=== PATIENT | male | born 1960 | race Caucasian/White ===

== ENCOUNTER 2017-02-20 18:43 | Inpatient (IN) | payer OTHER ==
[~2017-02-20] VITALS: Ht 177.8 cm; Wt 94.7 kg
[~2017-02-20 18:43] MED LIST: CLC100 PO; FLM4 PO; NPR375 PO; TYL325X PO
--- NOTE | 2017-02-20 20:39 | DIAGNOSTIC IMAGING REPORT ---
CHEST ONE VIEW PORTABLE CLINICAL HISTORY: Chest pain. COMPARISON STUDY: Chest radiograph August 18, 2014. FINDINGS: Lung volumes are normal. No pneumothorax or pleural effusion is noted. Minimal left basilar opacity is suggestive of atelectasis. There is no consolidation to suggest pneumonia and there is no evidence of pulmonary edema. Cardiomediastinal silhouette is unremarkable. IMPRESSION: No acute cardiopulmonary findings. Electronically signed by: Nazario Sterling M.D. 02/20/2017 8:38 PM Dictated Date/Time: 02/20/2017 8:37 PM
[2017-02-20 20:42] LABS: BASO ABS # 0.08 K/uL (0-0.2); COMPLETE YES; EOS % 4.8 %; HEMATOCRIT 41.1 % (42-52); IG% 0.5 %; LYMPH % 31.4 %; LYMPH ABS # 2.49 K/uL (1.2-3.4); MEAN CELL VOLUME 91.7 fL (80-100); MEAN CORPUSCULAR HEMOGLOBIN 31.3 pg (25-34); MEAN CORPUSCULAR HGB CONC 34.1 g/dl (32-36); MEAN PLATELET VOLUME 9.7 fL (7.4-10.4); MONO % 6.9 %; NEUT % 55.4 %; PLATELET COUNT 208 K/uL (130-400); RED BLOOD COUNT 4.48 M/uL (4.7-6.1); WHITE BLOOD COUNT 7.93 K/uL (4.8-10.8)
--- NOTE | 2017-02-20 20:42 | DIAGNOSTIC IMAGING REPORT ---
R FOOT MIN 3 VIEWS ROUTINE CLINICAL HISTORY: RIGHT DORSAL FOOT PAIN, TRAUMA LAST MONTH. COMPARISON: None FINDINGS: Tarsometatarsal joints are intact. No acute fracture is identified. 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 There is subtle cortical irregularity of the lateral aspect of the right fifth metatarsal head. Mild posterior and plantar calcaneal spurring is noted. IMPRESSION: 1. No acute fracture or dislocation of the right foot. 2. Mild cortical irregularity of the lateral aspect of the right fifth metatarsal head. This finding is age indeterminate although probably chronic. This could be correlated with tenderness at this site. Electronically signed by: Nazario Sterling M.D. 02/20/2017 8:41 PM Dictated Date/Time: 02/20/2017 8:38 PM
--- NOTE | 2017-02-20 20:54 | DIAGNOSTIC IMAGING REPORT ---
RIGHT LOWER EXTREMITY VENOUS DOPPLER CLINICAL HISTORY: RIGHT LEG SWELLING, CALF PAIN, CHEST PAIN COMPARISON STUDY: No previous studies for comparison. TECHNIQUE: Sonography of the deep venous system of the right lower extremity was performed. Compression and augmentation were evaluated. FINDINGS: The common femoral, superficial femoral and popliteal veins were compressible. Augmentation was normal. Flow was shown within the deep calf vessels. IMPRESSION: No evidence of deep venous thrombus within the right lower extremity. Electronically signed by: Nazario Sterling M.D. 02/20/2017 8:53 PM Dictated Date/Time: 02/20/2017 8:53 PM
[2017-02-20 21:21] LABS: ALKALINE PHOSPHATASE 93 U/L (45-117); ALT/SGPT 41 U/L (12-78); AST/SGOT 31 U/L (15-37); BLOOD UREA NITROGEN 23 mg/dl (7-18); BUN/CREATININE RATIO 23.8 (10-20); CALCIUM 8.7 mg/dl (8.5-10.1); CARBON DIOXIDE 23 mmol/L (21-32); CHLORIDE 108 mmol/L (98-107); CKMB/CK RATIO 1.4 (0-3.0); CREATININE 0.98 mg/dl (0.60-1.40); GLUCOSE 80 mg/dl (70-99); POTASSIUM 4.4 mmol/L (3.5-5.1); SODIUM 139 mmol/L (136-145)
[2017-02-20] MEDS ORDERED: OPTIRAY 320 IV PRN (21:45)
[2017-02-20] MEDS ORDERED: OMEP40CA41 PO (22:12)
[2017-02-20] MEDS ORDERED: IBUP-1050 PO (22:12)
[2017-02-20] MEDS ORDERED: DOCU100C31 PO (22:12)
--- NOTE | 2017-02-20 22:16 | DIAGNOSTIC IMAGING REPORT ---
CT ANGIOGRAPHY OF THE CHEST, PULMONARY EMBOLUS PROTOCOL CLINICAL HISTORY: Left-sided chest pain, shortness of breath and right leg swelling. COMPARISON STUDY: Chest radiograph August 18, 2014 and February 20, [address] July 16, 2015. TECHNIQUE: Following IV administration of 94 mL of Optiray-320, helical axial images of the chest were obtained utilizing the pulmonary embolus protocol. Maximal intensity projections and sagittal and coronal reformats were viewed on an independent 3D workstation. IV contrast was administered without complication. A dose lowering technique was utilized adhering to the principles of ALARA. CT DOSE: 503.57 mGy.cm FINDINGS: No pulmonary emboli are identified. The size of the heart is normal. There is no pericardial effusion. There is moderate coronary artery calcification. A moderate sized hiatal hernia is noted. No enlarged thoracic lymph nodes are present. Central airways are patent. A few calcified thoracic lymph nodes are noted as well as calcified granulomas within the lesion. Linear and groundglass opacities within the lower lobe suggest atelectasis. There is no consolidation to suggest pneumonia. No pneumothorax or pleural effusion is present. There are several old left-sided rib fractures. IMPRESSION: 1. No pulmonary emboli identified. 2. No acute intrathoracic findings. 3. Moderate coronary artery calcification. 4. Moderate sized hiatal hernia. Electronically signed by: Nazario Sterling M.D. 02/20/2017 10:15 PM Dictated Date/Time: 02/20/2017 10:08 PM
[2017-02-20] MEDS ORDERED: ASPIRIN 81 MG CHEW PO STA (22:34)
--- NOTE | 2017-02-20 23:08 | EMERGENCY ROOM VISIT NOTE ---
History Report prepared by Christopher: Melissa Zelaya Under the Supervision of: Dr. Emiliano Sosa M.D. First contact with patient: 20:03 Chief Complaint: CHEST PAIN Stated Complaint: CHEST PAIN,FOOT PAIN Nursing Triage Summary: pt reports cp on L side of chest X 1 month intermittently denies radiation denies NV History of Present Illness The patient is a 56 year old male who presents to the Emergency Room with complaints of intermittent chest pain for 6 weeks. The patient states that they are mainly on the left side. He states that when the episodes come every 2-3 days and will last 20-30 minutes. The patient states that the episodes sometimes go away with acid reflux pills or a glass of milk, but recently that hasn't been cutting it. He states that the pain is a burning sensation that comes on when he is exerting himself. The patient reports that he walked to the mailbox with his dog today and it started. He states that he went to [facility] who sent him here to be worked over 2 hours ago. He reports that when these episodes come on he becomes nauseous. He notes a family history of heart disease, but denies any cardiac history himself. The patient also notes that he is a smoker. The patient complains of right foot pain, right calf pain, and his leg sometimes feeling numb. He states that he hit his foot on a dresser two days ago. He reports that his foot and leg swelled and since then has had the intermittent numbness. Pt denies LOC, headache, fevers, chills, diaphoresis, visual changes, neck pain , tearing pain radiating to the back, personal history or family history of aneurysm or pulmonary embolism, uncontrolled hypertension, breathing difficulties, coagulation abnormalities, prolonged travel, recent surgery or immobilization, vomiting, abdominal pain, melena, hematochezia, urinary symptoms , weakness, lymphadenopathy, rash, or other complaints. Source of History: patient Onset: 6 weeks Position: chest (left) Quality: burning Timing: intermittent Modifying Factors (Worsening): exertion Associated Symptoms: + nausea, + numbness Note: The patient complains of foot pain, right calf pain, and leg swelling. Review of Systems See HPI for pertinent positives and negatives. A total of ten systems were reviewed and were otherwise negative. Past Medical & Surgical Medical Problems: (1) Back problem (2) Bronchitis (3) COPD (chronic obstructive pulmonary disease) (4) Prostatic hypertrophy Family History Cancer FH: ND (myocardial infarction) Heart disease Social History Smoking Status: Current Every Day Smoker Marital Status: Housing Status: lives alone Occupation Status: disabled Current/Historical Medications Scheduled Docusate Sodium (Docusate Sodium), 100 MG PO BID Omeprazole (Prilosec), 40 MG PO DAILY Scheduled PRN Ibuprofen (Advil), 400-600 MG PO Q6H PRN for Pain Allergies Coded Allergies: No Known Allergies (Unverified , 12/26/13) Physical Exam Vital Signs Date Time Temp Pulse Resp B/P (MAP) Pulse Ox O2 Delivery O2 Flow Rate FiO2 02/20/17 22:30 36.5 60 20 154/91 97 Room Air 02/20/17 21:38 65 02/20/17 21:31 75 20 131/91 97 Room Air 02/20/17 20:25 70 20 189/105 95 Room Air 02/20/17 20:24 95 Room Air 02/20/17 20:24 95 Room Air 02/20/17 18:50 36.5 76 20 158/93 97 Room Air Physical Exam GENERAL: Awake, alert, well-appearing, in no distress HENT: Normocephalic, atraumatic. Oropharynx unremarkable. EYES: Normal conjunctiva. Sclera non-icteric. NECK: Supple. No nuchal rigidity. FROM. No JVD. RESPIRATORY: Clear to auscultation. CARDIAC: Regular rate, normal rhythm. Extremities warm and well perfused. Pulses equal. ABDOMEN: Soft, non-distended. No tenderness to palpation. No rebound or guarding. No masses. RECTAL: Deferred. MUSCULOSKELETAL: Chest examination reveals no tenderness. The back is symmetrical on inspection without obvious abnormality. There is no CVA tenderness to palpation. No joint edema. LOWER EXTREMITIES: Mild right dorsal foot tenderness. Mild right calf tenderness. Right calf appears slightly larger than left. 1+ edema on the right leg. No discoloration. NEURO: Normal sensorium. No sensory or motor deficits noted. SKIN: No rash or jaundice noted. Medical Decision & Procedures ER Provider Diagnostic Interpretation: Radiology results as stated below per my review and radiologist interpretation: CHEST ONE VIEW PORTABLE CLINICAL HISTORY: Chest pain. COMPARISON STUDY: Chest radiograph August 18, 2014. FINDINGS: Lung volumes are normal. No pneumothorax or pleural effusion is noted. Minimal left basilar opacity is suggestive of atelectasis. There is no consolidation to suggest pneumonia and there is no evidence of pulmonary edema. Cardiomediastinal silhouette is unremarkable. IMPRESSION: No acute cardiopulmonary findings. Electronically signed by: Nazario Sterling M.D. 02/20/2017 8:38 PM Dictated Date/Time: 02/20/2017 8:37 PM R FOOT MIN 3 VIEWS ROUTINE CLINICAL HISTORY: RIGHT DORSAL FOOT PAIN, TRAUMA LAST MONTH. COMPARISON: None FINDINGS: Tarsometatarsal joints are intact. No acute fracture is identified. 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 There is subtle cortical irregularity of the lateral aspect of the right fifth metatarsal head. Mild posterior and plantar calcaneal spurring is noted. IMPRESSION: 1. No acute fracture or dislocation of the right foot. 2. Mild cortical irregularity of the lateral aspect of the right fifth metatarsal head. This finding is age indeterminate although probably chronic. This could be correlated with tenderness at this site. Electronically signed by: Nazario Sterling M.D. 02/20/2017 8:41 PM Dictated Date/Time: 02/20/2017 8:38 PM RIGHT LOWER EXTREMITY VENOUS DOPPLER CLINICAL HISTORY: RIGHT LEG SWELLING, CALF PAIN, CHEST PAIN COMPARISON STUDY: No previous studies for comparison. TECHNIQUE: Sonography of the deep venous system of the right lower extremity was performed. Compression and augmentation were evaluated. FINDINGS: The common femoral, superficial femoral and popliteal veins were compressible. Augmentation was normal. Flow was shown within the deep calf vessels. IMPRESSION: No evidence of deep venous thrombus within the right lower extremity. Electronically signed by: Nazario Sterling M.D. 02/20/2017 8:53 PM Dictated Date/Time: 02/20/2017 8:[address] ANGIOGRAPHY OF THE CHEST, PULMONARY EMBOLUS PROTOCOL CLINICAL HISTORY: Left-sided chest pain, shortness of breath and right leg swelling. COMPARISON STUDY: Chest radiograph August 18, 2014 and February 20, [address] July 16, 2015. TECHNIQUE: Following IV administration of 94 mL of Optiray-320, helical axial images of the chest were obtained utilizing the pulmonary embolus protocol. Maximal intensity projections and sagittal and coronal reformats were viewed on an independent 3D workstation. IV contrast was administered without complication. A dose lowering technique was utilized adhering to the principles of ALARA. CT DOSE: 503.57 mGy.cm FINDINGS: No pulmonary emboli are identified. The size of the heart is normal. There is no pericardial effusion. There is moderate coronary artery calcification. A moderate sized hiatal hernia is noted. No enlarged thoracic lymph nodes are present. Central airways are patent. A few calcified thoracic lymph nodes are noted as well as calcified granulomas within the lesion. Linear and groundglass opacities within the lower lobe suggest atelectasis. There is no consolidation to suggest pneumonia. No pneumothorax or pleural effusion is present. There are several old left-sided rib fractures. IMPRESSION: 1. No pulmonary emboli identified. 2. No acute intrathoracic findings. 3. Moderate coronary artery calcification. 4. Moderate sized hiatal hernia. Electronically signed by: Nazario Sterling M.D. 02/20/2017 10:15 PM Dictated Date/Time: 02/20/2017 10:08 PM Laboratory Results 02/20/17 20:23 Red Blood Count 4.48, Mean Corpuscular Volume 91.7, Mean Corpuscular Hemoglobin 31.3, Mean Corpuscular Hemoglobin Concent 34.1, Mean Platelet Volume 9.7, Neutrophils (%) (Auto) 55.4, Lymphocytes (%) (Auto) 31.4, Monocytes (%) (Auto) 6.9, Eosinophils (%) (Auto) 4.8, Basophils (%) (Auto) 1.0, Neutrophils # (Auto) 4.39, Lymphocytes # (Auto) 2.49, Monocytes # (Auto) 0.55, Eosinophils # (Auto) 0.38, Basophils # (Auto) 0.08 02/20/17 20:23 Test 02/20/17 20:23 White Blood Count 7.93 K/uL (4.8-10.8) Red Blood Count 4.48 M/uL (4.7-6.1) Hemoglobin 14.0 g/dL (14.0-18.0) Hematocrit 41.1 % (42-52) Mean Corpuscular Volume 91.7 fL (80-100) Mean Corpuscular Hemoglobin 31.3 pg (25-34) Mean Corpuscular Hemoglobin Concent 34.1 g/dl (32-36) Platelet Count 208 K/uL (130-400) Mean Platelet Volume 9.7 fL (7.4-10.4) Neutrophils (%) (Auto) 55.4 % Lymphocytes (%) (Auto) 31.4 % Monocytes (%) (Auto) 6.9 % Eosinophils (%) (Auto) 4.8 % Basophils (%) (Auto) 1.0 % Neutrophils # (Auto) 4.39 K/uL (1.4-6.5) Lymphocytes # (Auto) 2.49 K/uL (1.2-3.4) Monocytes # (Auto) 0.55 K/uL (0.11-0.59) Eosinophils # (Auto) 0.38 K/uL (0-0.5) Basophils # (Auto) 0.08 K/uL (0-0.2) RDW Standard Deviation 48.9 fL (36.4-46.3) RDW Coefficient of Variation 14.4 % (11.5-14.5) Immature Granulocyte % (Auto) 0.5 % Immature Granulocyte # (Auto) 0.04 K/uL (0.00-0.02) Anion Gap 8.0 mmol/L (3-11) Est Creatinine Clear Calc Drug Dose 97.5 ml/min Estimated GFR () 98.1 Estimated GFR (Non- 84.6 BUN/Creatinine Ratio 23.8 (10-20) Calcium Level 8.7 mg/dl (8.5-10.1) Total Bilirubin 0.2 mg/dl (0.2-1) Direct Bilirubin < 0.1 mg/dl (0-0.2) Aspartate Amino Transf (AST/SGOT) 31 U/L (15-37) Alanine Aminotransferase (ALT/SGPT) 41 U/L (12-78) Alkaline Phosphatase 93 U/L (45-117) Total Creatine Kinase 253 U/L (39-308) Creatine Kinase MB 3.5 ng/ml (0.5-3.6) Creatine Kinase MB Ratio 1.4 (0-3.0) Troponin I < 0.015 ng/ml (0-0.045) Total Protein 7.7 gm/dl (6.4-8.2) Albumin 3.6 gm/dl (3.4-5.0) Lipase 143 U/L (73-393) Laboratory results reviewed by me Medications Administered Medications (Trade) Dose Ordered Sig/Daysi Route Start Time Stop Time Status Last Admin Dose Admin Aspirin (Aspirin Chew) 324 mg NOW STAT PO 12/26/17 22:34 02/20/17 22:35 DC 02/20/17 22:42 324 MG ECG Indication: chest pain Rate (beats per minute): 65 Rhythm: sinus rhythm Findings: PVC, no acute ischemic change ED Course 2005: The patient was evaluated in room B2. A complete history and physical exam was performed. 2145: I reevaluated the patient and updated the patient. He is going to CT. 2224: Discussed the patient's case with Dr. Garcia. The patient will be evaluated for further treatment and disposition. 2226: I reevaluated the patient and updated him on his results. He agrees to staying. Medical Decision Prior records/ancillary studies reviewed. Triage Nursing notes reviewed and agree them. The patient's history was concerning for chest pain. Differential diagnosis: Etiologies such as cardiac ischemia, aortic dissection, pulmonary embolism, pneumonia, pneumothorax, musculoskeletal, infections, pericarditis, myocarditis , esophageal rupture, gastrointestinal, as well as others were entertained. Physical examination: As above. ER treatment provided: Aspirin On reassessment the patient felt better. Diagnostic interpretation by me: The electrocardiogram was negative for pathologic change. The labs revealed an unremarkable CBC and chemistry panel. Cardiac markers negative. Imaging studies: Chest x-ray ordered x-ray, ultrasound, and CT as above The patient has multiple risk factors for coronary disease. He has pain with exertion and his primary clinic referred him to the Emergency Room. Consultation: A consultation was placed with the hospitalist. The case was discussed and diagnostics were reviewed. The patient was evaluated in the ER for further treatment. Medication Reconcilliation Current Medication List: was personally reviewed by me Blood Pressure Screening Patient's blood pressure: Elevated blood pressure Will be further monitored by the hospitalist. Consults Time Called: 2223 Consulting Physician: Dr. Garcia- Hospitalist Returned Call: 2224 Discussed the patient's case with Dr. Garcia. The patient will be evaluated for further treatment and disposition. Impression Primary Impression: Left sided chest pain Scribe Attestation The scribe's documentation has been prepared under my direction and personally reviewed by me in its entirety. I confirm that the note above accurately reflects all work, treatment, procedures, and medical decision making performed by me. Departure Information Dispostion Being Evaluated By Hospitalist Tone Jimenez M.D. (PCP) Patient Instructions [facility]
[2017-02-21] VITALS (16 sets, daily range): BP systolic 107–143; BP diastolic 60–91; PULSE 63–89; TEMP 36.4–37.1; O2SAT 93–97; Ht 177.8 cm; Wt 94.7 kg
[2017-02-21] MEDS ORDERED: ONDANSETRON INJ 2 MG/ML 2 ML VIAL IV PRN
[2017-02-21] MEDS ORDERED: POLYETHYLENE (MIRALAX) 17 GM PACK PO PRN
[2017-02-21] MEDS ORDERED: NITROGLYCERIN 0.4 MG SL PER TAB CHARGE SL PRN
[2017-02-21] MEDS ORDERED: ALUMINUM/MAGNESIUM/SIMETH (MAALOX MAX) 30 ML UDC PO PRN
[2017-02-21] MEDS ORDERED: MAGNESIUM HYDROXIDE SUSP 30 ML UDC PO PRN
[2017-02-21 00:27] LABS: URIC ACID 4.9 mg/dl (2.6-7.2)
--- NOTE | 2017-02-21 00:37 | History and Physical ---
History & Physical Date & Time of Service: Feb 21, 2017 at 00:11 Chief Complaint: Chest Pain,Foot Pain Primary Care Physician: Tone Moore M.D. History of Present Illness Source: patient This is a 56 y/o M who presents with chest pain, shortness of breath and right foot pain. He reports that the chest pain has been going on for 6 weeks intermittently. He has pain that lasts about 20 mins and comes every couple of days. He does report chest pain or a burning sensation with minimal exertion. For ex. walking the dog can bring on symptoms. He does have some nausea that accmpanies this. He has a significant family history of heart disease but no personal history. He does smoke 1 ppd. He also reports right foot pain x 3 weeks. He reports that he hit his foot on the dressor a couple of days ago. He has swelling and some numbness. He does drink alcohol twice a week. Does eat a lot of red meat. Past Medical/Surgical History Medical Problems: (1) Back problem Status: Chronic (2) Bronchitis Status: Resolved (3) COPD (chronic obstructive pulmonary disease) Status: Chronic (4) Prostatic hypertrophy Status: Chronic Family History Cancer FH: PR (myocardial infarction) Heart disease Social History Smoking Status: Current Every Day Smoker Smokeless Tobacco Use: No Alcohol Use: occasionally Drug Use: none Marital Status: Occupational Status: disabled Immunizations History of Influenza Vaccine: Unknown History of Tetanus Vaccine?: Unknown History of Pneumococcal: Unknown History of Hepatitis B Vaccine: Unknown Multi-Drug Resistant Organisms History of MDRO: No Allergies Coded Allergies: No Known Allergies (Unverified , 12/26/13) Home Medications Scheduled Docusate Sodium (Docusate Sodium), 100 MG PO BID Omeprazole (Prilosec), 40 MG PO DAILY Scheduled PRN Ibuprofen (Advil), 400-600 MG PO Q6H PRN for Pain Review of Systems Constitutional: No fever, No chills Respiratory: + shortness of breath, + dyspnea on exertion, + dyspnea at rest, No sputum, No wheezing Cardiovascular: + chest pain, + edema Abdomen: No pain, No nausea, No vomiting Musculoskeletal: No joint pain, No muscle pain Physical Exam Vital Signs Date Time Temp Pulse Resp B/P (MAP) Pulse Ox O2 Delivery O2 Flow Rate FiO2 02/20/17 23:52 69 19 148/85 97 Room Air 02/20/17 23:00 64 19 153/85 97 Room Air 02/20/17 22:30 36.5 60 20 154/91 97 Room Air 02/20/17 21:38 65 02/20/17 21:31 75 20 131/91 97 Room Air 02/20/17 20:25 70 20 189/105 95 Room Air 02/20/17 20:24 95 Room Air 02/20/17 20:24 95 Room Air 02/20/17 18:50 36.5 76 20 158/93 97 Room Air General Appearance: no apparent distress Eyes: PERRL, EOMI ENT: hearing grossly normal Respiratory/Chest: lungs clear, normal breath sounds, no respiratory distress, no accessory muscle use Cardiovascular: regular rate, rhythm, no murmur Abdomen/GI: normal bowel sounds, non tender, soft Back: no CVA tenderness Extremities/Musculoskelatal: normal range of motion, + pedal edema (right sided , tenderness, warmth and erythema over the dorsum of the foot) 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, no motor/sensory deficits, alert, oriented x 3 Diagnostics Laboratory Results Results Past 24 Hours Test 02/20/17 20:23 Range/Units White Blood Count 7.93 4.8-10.8 K/uL Red Blood Count 4.48 4.7-6.1 M/uL Hemoglobin 14.0 14.0-18.0 g/dL Hematocrit 41.1 42-52 % Mean Corpuscular Volume 91.7 80-100 fL Mean Corpuscular Hemoglobin 31.3 25-34 pg Mean Corpuscular Hemoglobin Concent 34.1 32-36 g/dl Platelet Count 208 130-400 K/uL Mean Platelet Volume 9.7 7.4-10.4 fL Neutrophils (%) (Auto) 55.4 % Lymphocytes (%) (Auto) 31.4 % Monocytes (%) (Auto) 6.9 % Eosinophils (%) (Auto) 4.8 % Basophils (%) (Auto) 1.0 % Neutrophils # (Auto) 4.39 1.4-6.5 K/uL Lymphocytes # (Auto) 2.49 1.2-3.4 K/uL Monocytes # (Auto) 0.55 0.11-0.59 K/uL Eosinophils # (Auto) 0.38 0-0.5 K/uL Basophils # (Auto) 0.08 0-0.2 K/uL RDW Standard Deviation 48.9 36.4-46.3 fL RDW Coefficient of Variation 14.4 11.5-14.5 % Immature Granulocyte % (Auto) 0.5 % Immature Granulocyte # (Auto) 0.04 0.00-0.02 K/uL Sodium Level 139 136-145 mmol/L Potassium Level 4.4 3.5-5.1 mmol/L Chloride Level 108 98-107 mmol/L Carbon Dioxide Level 23 21-32 mmol/L Anion Gap 8.0 3-11 mmol/L Blood Urea Nitrogen 23 7-18 mg/dl Creatinine 0.98 0.60-1.40 mg/dl Est Creatinine Clear Calc Drug Dose 97.5 ml/min Estimated GFR () 98.1 Estimated GFR (Non- 84.6 BUN/Creatinine Ratio 23.8 10-20 Random Glucose 80 70-99 mg/dl Calcium Level 8.7 8.5-10.1 mg/dl Total Bilirubin 0.2 0.2-1 mg/dl Direct Bilirubin < 0.1 0-0.2 mg/dl Aspartate Amino Transf (AST/SGOT) 31 15-37 U/L Alanine Aminotransferase (ALT/SGPT) 41 12-78 U/L Alkaline Phosphatase 93 45-117 U/L Total Creatine Kinase 253 39-308 U/L Creatine Kinase MB 3.5 0.5-3.6 ng/ml Creatine Kinase MB Ratio 1.4 0-3.0 Troponin I < 0.015 0-0.045 ng/ml Total Protein 7.7 6.4-8.2 gm/dl Albumin 3.6 3.4-5.0 gm/dl Lipase 143 73-393 U/L Impression Assessment and Plan This is a 56 y/o M who presents with chest pain, shortness of breath and right foot pain Chest pain rule out Serial enzymes Stress Echo Cardiology Consult Lipid profile CTA negative for PE Right foot pain Lower ext USG r/o DVT check uric acid- suspicious of gout Xray shows Mild cortical irregularity of the lateral aspect of the right fifth metatarsal head. This finding is age indeterminate although probably chronic. Not quite at the site of his tenderness Smoking Smoking cessation counselling DVT proph SCD Code Full Attending addendum: I have physically seen this patient, have supervised the medical residents activities, and agree with the H&P unless as otherwise noted. Assessment and Plan: Chest pain-- The patient will be admitted to telemetry for serial cardiac enzymes, serial EKGs, cardiac rhythm monitoring and a 2-D echocardiogram with Dopplers. 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 Avoid use of NSAIDs during cardiac workup, could therefore place on oral prednisone dosing Consider the use of Uloric, and suggest that he research dietary issues to see if there is anything in his diet which may be contributing to the symptoms Lower extremity venous Doppler negative for DVT Tobacco use disorder-- Smoking cessation counseling Level of Care Telemetry Advanced Directives Existing Advance Directive: No Existing Living Will: No Existing Power of Maintenance Plumber: No Resuscitation Status FULL RESUSCITATION VTE Prophylaxis VTE Risk Assessment Done? Y/N: Yes Risk Level: Moderate Given or contraindicated: SCD's Social Service Consult None Apply
[2017-02-21] MEDS ORDERED: INFLUENZA VIRUS QUAD VACCINE 0.5 ML SYR IM. ONE (03:00)
[2017-02-21] MEDS ORDERED: INFLUENZA ADMINISTRATION CHARGE ONE (03:00)
[2017-02-21] MEDS ORDERED: PNEUMOCOCCAL POLYSACCHARIDES 25 MCG/0.5 ML VIAL/SYR IM. ONE (03:00)
[2017-02-21] MEDS ORDERED: PNEUMOCOCCAL ADMINISTRATION CHARGE ONE (03:00)
[2017-02-21 07:30] LABS: CHOLESTEROL 216 mg/dl (0-200); CHOLESTEROL/HDL RATIO 5.4; HDL CHOLESTEROL 40 mg/dl; LDL CHOLESTEROL CALCULATED 141 mg/dl; TRIGLYCERIDES 175 mg/dl (0-150); VERY LOW DENSITY LIPOPROT CALC 35 mg/dl
[2017-02-21] MEDS: DICLOFENAC SOD 1% GEL 100 GM TUBE EXT SCH ×4 (07:55→21:04)
--- NOTE | 2017-02-21 10:13 | Cardiology Consultation ---
Cardiology Consultation Date of Consultation: Feb 21, 2017. Requesting Physician: Dr. Martin Attending Physician: Dr. Bush Reason for Consultation: Chest pain Pt evaluation today including: conversation w/ patient, conversation w/ family , physical exam, chart review, lab review, review of studies, review of inpatient medication list, conversation w/ attending History of Present Illness Mr. Sauer is a 56 year old male with a medical history significant for GERD who was admitted on 02/10/17 with chest discomfort and right foot discomfort/ swelling. He reports that over the past month he has been experiencing discomfort and edema of his right foot and therefore was evaluated by his PCP yesterday. During the appointment he mentioned that he has been having intermittent chest pain and he was referred to emergency department for further evaluation. He reports having two different types of chest discomfort. The first type of chest discomfort he has been experiencing for nearly one year. He describes this as a "burning" across his chest which occurs with more strenuous exertion such as chopping wood or climbing hills. It resolves within a few minutes of rest. He has associated dyspnea and has attributed to his lungs as he his a smoker. He admits he has adjusted his activity level because of the symptoms. For example, in hunting season he walked slower and took more frequent breaks to avoid getting the discomfort. The other chest discomfort he describes as a left sided "burning aching pain" which occurs at random and is not related to exertion. It can last for a few minutes to an hour in duration. Sometimes he can correlate it to certain foods and often it is relieved by taking his omeprazole. He can have associated nausea with that discomfort but no dyspnea. He has been experiencing that discomfort for about 6-8 months and it is becoming more frequent. He has no history of coronary artery disease. In 2000 he was admitted with chest discomfort and had an abnormal stress echocardiogram. He subsequently underwent cardiac catheterization without any evidence of coronary artery disease. He reports having a history of "borderline" cholesterol and does not currently take a statin medication. His electrocardiogram upon admission shows no ischemic changes and cardiac enzymes have been negative so far. He is currently feeling well without complaints. He denies any chest discomfort so far today. He denies shortness of breath, orthopnea, PND, palpitations, lightheadedness, presyncope or syncope. The remainder of his review of systems is unremarkable. Past Medical/Surgical History 1. GERD treated with omeprazole Family History Cancer FH: PA (myocardial infarction) Heart disease Older brother of PA at age 57 Older brother with CAD, CHF and heart transplant Younger brother with CABG in 50s Father with CAD and CHF, in 70s Mother of lung cancer at 56 2 maternal uncles with CAD Social History Smoking Status: Current Every Day Smoker History of Alcohol Use: Yes (3x per week) Single. 2 children and 3 grandchildren. Retired from [employer] Enjoys gardening, hunting and fishing. Smokes 1 pack per day since about age 15. Drinks 3 alcoholic beverages per week. No drug use. Allergies Coded Allergies: No Known Allergies (Unverified , 12/26/13) Medications Current Inpatient Medications Medications (Trade) Dose Ordered Sig/Daysi Route Start Time Stop Time Status Last Admin Dose Admin Ioversol (Optiray 320) 111 ml UD PRN IV 02/20/17 21:45 02/24/17 21:44 Acetaminophen (Tylenol Tab) 650 mg Q4H PRN PO 02/21/17 00:00 03/23/17 00:00 Al Hydrox/Mg Hydrox/Simethicone (Maalox Max Susp) 15 ml Q4H PRN PO 02/21/17 00:00 03/23/17 00:00 Magnesium Hydroxide (Milk Of Magnesia Susp) 30 ml Q12H PRN PO 02/21/17 00:00 03/23/17 00:00 Ondansetron HCl (Zofran Inj) 4 mg Q6H PRN IV 02/21/17 00:00 03/23/17 00:00 Nitroglycerin (Nitrostat Tab) 0.4 mg UD PRN SL 02/21/17 00:00 03/23/17 00:00 Polyethylene (Miralax Powder Packet) 17 gm DAILY PRN PO 02/21/17 00:00 03/23/17 00:00 Diclofenac Sodium (Voltaren 1% Top Gel) 1 appln QID EXT 02/21/17 09:00 03/23/17 08:59 Prednisone (PredniSONE TAB) 20 mg DAILY@1400 PO 02/21/17 14:00 03/23/17 13:59 Physical Exam Vital Signs Past 12 Hours Date Time Temp Pulse Resp B/P (MAP) Pulse Ox O2 Delivery O2 Flow Rate FiO2 02/21/17 08:00 95 Room Air 02/21/17 07:29 36.7 67 20 118/76 (90) 96 Room Air 02/21/17 04:00 94 Room Air 02/21/17 03:22 36.4 63 19 107/67 (80) 94 Room Air 02/21/17 01:33 36.5 63 18 143/90 95 Room Air 02/21/17 00:21 69 19 148/85 97 02/20/17 23:52 69 19 148/85 97 Room Air 02/20/17 23:00 64 19 153/85 97 Room Air 02/20/17 22:30 36.5 60 20 154/91 97 Room Air 02/20/17 21:38 65 02/20/17 21:31 75 20 131/91 97 Room Air General: Alert and oriented. No acute distress. HEENT: Head is normal. PERRLA. Sclera anicteric. Ears, nose and throat unremarkable. Neck: No JVD or carotid bruit. Lungs: Clear to auscultation bilaterally without rales, rhonchi or wheezes. Cardiac: Regular rate and rhythm. S1 and S2 are normal. No rales, rhonchi or wheezes. Abdomen: Soft and nontender. Bowel sounds presents. No mass or organomegaly. No abdominal bruit. Extremities: Without cyanosis or clubbing. Right lower extremity with 1+ pretibial edema, no edema of left lower extremity. No erythema. Peripheral pulses intact. Skin: No rash or abnormal lesions. Normal turgor. Neurologic: No lateralizing changes. Psychiatric: Affect seems appropriate. Data Laboratory Results: Last 24 Hours Test 02/20/17 20:23 02/21/17 06:18 White Blood Count 7.93 K/uL Red Blood Count 4.48 M/uL Hemoglobin 14.0 g/dL Hematocrit 41.1 % Mean Corpuscular Volume 91.7 fL Mean Corpuscular Hemoglobin 31.3 pg Mean Corpuscular Hemoglobin Concent 34.1 g/dl Platelet Count 208 K/uL Mean Platelet Volume 9.7 fL Neutrophils (%) (Auto) 55.4 % Lymphocytes (%) (Auto) 31.4 % Monocytes (%) (Auto) 6.9 % Eosinophils (%) (Auto) 4.8 % Basophils (%) (Auto) 1.0 % Neutrophils # (Auto) 4.39 K/uL Lymphocytes # (Auto) 2.49 K/uL Monocytes # (Auto) 0.55 K/uL Eosinophils # (Auto) 0.38 K/uL Basophils # (Auto) 0.08 K/uL RDW Standard Deviation 48.9 fL RDW Coefficient of Variation 14.4 % Immature Granulocyte % (Auto) 0.5 % Immature Granulocyte # (Auto) 0.04 K/uL Sodium Level 139 mmol/L Potassium Level 4.4 mmol/L Chloride Level 108 mmol/L Carbon Dioxide Level 23 mmol/L Anion Gap 8.0 mmol/L Blood Urea Nitrogen 23 mg/dl Creatinine 0.98 mg/dl Est Creatinine Clear Calc Drug Dose 97.5 ml/min Estimated GFR () 98.1 Estimated GFR (Non- 84.6 BUN/Creatinine Ratio 23.8 Random Glucose 80 mg/dl Uric Acid 4.9 mg/dl Calcium Level 8.7 mg/dl Total Bilirubin 0.2 mg/dl Direct Bilirubin < 0.1 mg/dl Aspartate Amino Transf (AST/SGOT) 31 U/L Alanine Aminotransferase (ALT/SGPT) 41 U/L Alkaline Phosphatase 93 U/L Total Creatine Kinase 253 U/L Creatine Kinase MB 3.5 ng/ml Creatine Kinase MB Ratio 1.4 Troponin I < 0.015 ng/ml < 0.015 ng/ml Total Protein 7.7 gm/dl Albumin 3.6 gm/dl Lipase 143 U/L Triglycerides Level 175 mg/dl Cholesterol Level 216 mg/dl HDL Cholesterol 40 mg/dl LDL Cholesterol, Calculated 141 mg/dl VLDL Cholesterol, Calculated 35 mg/dl Cholesterol/HDL Ratio 5.4 Chest x-ray without acute process. Venous doppler of right lower extremity without evidence of DVT Electrocardiogram 02/21/17: Sinus rhythm with occasional PVC. Incomplete RBBB. Telemetry reviewed: sinus rhythm with occasional PVCs Assessment & Plan Patient discussed with Dr. Bush. 1. Chest discomfort: Patient has been having two types of chest discomfort. He has been having exertional chest discomfort with associated dyspnea for nearly one year which is concerning for possible angina. He also has a left sided chest discomfort which occurs at rest and can be associated with meals and relieved by omeprazole. This pain may be gastrointestinal in nature. His electrocardiogram is without ischemic changes and troponin is negative x2. Given his exertional chest discomfort and risk factors including tobacco use, dyslipidemia and family history of premature CAD recommend stress echocardiogram to rule out cardiac ischemia. This will be performed today and further recommendations will be made based on the results. 2. Dyslipidemia: LDL cholesterol is elevated at 141. Recommend statin therapy. 3. Tobacco use: Discussed smoking cessation. Addendum: Patient underwent stress echocardiogram which was abnormal. Discussed with Dr. Bush and we recommend further evaluation of coronary anatomy with cardiac catheterization which will be performed today by Dr. Michel.
[2017-02-21] MEDS ORDERED: PERFLUTREN LIPID MICROSPHERE (DEFINITY) IV ONE (11:08)
[2017-02-21] MEDS ORDERED: ASPIRIN 81 MG ECTAB PO STA (11:38)
[2017-02-21] MEDS ORDERED: ASPIRIN 81 MG CHEW ONE (11:42)
--- NOTE | 2017-02-21 11:43 | Pre Sedation Assessment ---
Pre Sedation Assessment General Date of Sedation: Feb 21, 2017. Vital Signs Past 12 Hours Date Time Temp Pulse Resp B/P (MAP) Pulse Ox O2 Delivery O2 Flow Rate FiO2 02/21/17 08:00 95 Room Air 02/21/17 07:29 36.7 67 20 118/76 (90) 96 Room Air 02/21/17 04:00 94 Room Air 02/21/17 03:22 36.4 63 19 107/67 (80) 94 Room Air 02/21/17 01:33 36.5 63 18 143/90 95 Room Air 02/21/17 00:21 69 19 148/85 97 02/20/17 23:52 69 19 148/85 97 Room Air Review Cardiovascular: regular rate, rhythm, no murmur Lungs: lungs clear Pre-Sedation Airway Assessment Smoking Status: Current Every Day Smoker Hx of Sleep Apnea: No Short Thick Neck: No Mallampati Classification: Class I ASA Classification: Class II NPO Status Date of Last Intake of Fluids: Feb 21, 2017 Time of Last Intake of Fluids: 0000 Date of Last Intake of Solids: Feb 20, 2017 Time of Last Intake of Solids: 1900 Procedure Planning Contraindications for Sedation: None Current Medications Reviewed: Yes Notes The planned sedation has been discussed with the patient. Informed Consent was obtained. I have identified the patient, determined the appropriateness of sedation and have assessed the patient immediately prior to the procedure. All medicine(s) and interventions are by my order.
--- NOTE | 2017-02-21 14:05 | EXERCISE STRESS ECHO ---
*NOTICE TO RECEIVING [employer] This information is strictly Confidential and protected under [place] law. [place] law prohibits you from making any further disclosure of this information unless further disclosure is expressly permitted by the written consent of the person to whom it pertains or is authorized by law. A general authorization for the release of medical or other information is not sufficient for this purpose. Hospital accepts no responsibility if the information is made available to any other person, INCLUDING THE PATIENT. Interpretation Summary * Name: KASSANDRA SORENSEN JR Study Date: 02/21/2017 09:10 AM BP: 117/71 mmHg * Patient Location: [facility] HR: 82 * : 1960 (M/d/yyyy) Gender: Male Height: 70 in * Age: 56 yrs Ethnicity: [place] Weight: 209 lb * Ordering Physician: Tiffany Martin * Referring Physician: Self, Referred * Performed By: Rayna Erickson RDCS * * Reason For Study: Chest Pain * BSA: 2.1 m2 * -- Conclusions -- * Stress Echo: * 1. Abnormal stress echo for ischemia with akinesis of the septal base at 93% MPHR. * 2. Abnormal exercise ECG for ischemia with 1-[address] depression in leads II, III, and aVF, which improved but persisted beyond 12 minutes into recovery. * 3. Appropriate blood pressure response to exercise. * 4. No arrhythmia. * 5. Study terminated due to leg pain. Left sided chest pain described as a burning occurred early into recovery and resolved with rest. * 6. Poor exercise tolerance. * 7. Technically difficult study, enhanced with IV Definity. * 8. Dr. Bush was notified of the above findings. * ECHO: * 1. Normal left ventricular size and systolic function. EF 60-65%. No regional wall motion abnormalities noted at rest. No left ventricular hypertrophy. Type 2 diastolic dysfunction, pseudo normalized pattern. * 2. Mild mitral regurgitation. * 3. No prior study available for comparison. Procedure Details * ECHOEX, CPT #[id number] * ECHO DOPPLER, CPT #[id number] * ECHO COLOR FLOW, CPT #[id number] * A contrast injection of Definity was performed to improve assessment of LV function. * Contrast was injected into an intravenous site in the left arm. * One vial of Definity ultrasound contrast was diluted in normal saline to a total volume of 10 ml. A total of '4' ml of solution was administered during imaging. * Lot # [id number] of Definity utilized for procedure. * Expiration date . Left Ventricle * The left ventricle is normal in size. * There is normal left ventricular wall thickness. * Ejection Fraction = 60-65%. * The left ventricle is normal in structure and function. * The left ventricular wall motion is normal at rest. Right Ventricle * The right ventricle is normal in size and function. * The right ventricular systolic function is normal as assessed by tricuspid annular plane systolic excursion (TAPSE) (normal >1.5 cm). Atria * The left atrial size is normal. * Right atrial size is normal. * There is no evidence of atrial septal defect, but resolution does not allow assessment for a patent foramen ovale. Mitral Valve * The mitral valve is grossly normal. * There is no mitral valve stenosis. * There is mild mitral regurgitation. Tricuspid Valve * The tricuspid valve is not well visualized, but is grossly normal. * There is no tricuspid stenosis. * Significant tricuspid regurgitation is absent. Aortic Valve * The aortic valve is normal in structure and function. * No hemodynamically significant valvular aortic stenosis. * No aortic regurgitation is present. Pulmonic Valve * The pulmonary valve is inadequately visualized, but the Doppler data is adequate for interpretation. * There is no significant pulmonary regurgitation. Great Vessels * The aortic root is normal size. * Ascending aorta of normal dimension * Aortic arch of normal dimension. * Normal IVC size and inspiratory collapse. Pericardium * There is no pericardial effusion. Stress Parameters * NSR at 65 bpm. PVC. * 1-[address] depression in leads II, III, aVF, which improved but persisted beyond 12 minutes into recovery there was slow upsloping ST depression in V4, V5, V6. * Rest heart rate was '82' BPM. * Rest blood pressure was '117/71' * Maximum heart rate achieved was 151 bpm. * Maximum heart rate was 93 % of maximum age-predicted heart rate. * Maximum blood pressure was '149/60' * Total exercise time was '04:44' * Maximum exercise MET level achieved was '6.60' METS * Maximum treadmill speed was '2.50' miles per hour. * Maximum treadmill elevation was '12.00'% grade. * Normal blood pressure response to exercise. * The patient exhibited leg pain during exercise. * Left sided chest pain described as a burning occurred early into recovery and resolved with rest. Left Ventricular Diastolic Function * Diastolic dysfunction, Grade II (pseudonormalization pattern). MMode 2D Measurements and Calculations IVSd 0.92 cm IVSs 0.95 cm LVIDd 4.7 cm LVIDs 3.0 cm LVPWd 1.0 cm LVPWs 1.5 cm IVS/LVPW 0.88 FS 36.0 % EDV(Teich) 103.8 ml ESV(Teich) 35.7 ml EF(Teich) 65.6 % EDV(cubed) 105.7 ml ESV(cubed) 27.7 ml EF(cubed) 73.8 % % IVS thick 3.5 % % LVPW thick 46.2 % LV mass(C)d 161.6 grams LV mass(C)dI 76.0 grams/m\S\2 LV mass(C)s 115.9 grams LV mass(C)sI 54.5 grams/m\S\2 SV(Teich) 68.1 ml SI(Teich) 32.0 ml/m\S\2 SV(cubed) 78.0 ml SI(cubed) 36.7 ml/m\S\2 Ao root diam 3.3 cm Ao root area 8.7 cm\S\2 ACS 2.0 cm LA dimension 3.9 cm asc Aorta Diam 2.6 cm LA/Ao 1.2 Doppler Measurements and Calculations MV E max sol 86.3 cm/sec MV A max sol 60.6 cm/sec MV E/A 1.4 MV dec time 0.23 sec Ao V2 max 124.9 cm/sec Ao max PG 6.2 mmHg Ao max PG (full) 2.8 mmHg LV V1 max PG 3.5 mmHg LV V1 max 93.1 cm/sec PA V2 max 106.4 cm/sec PA max PG 4.5 mmHg
[2017-02-21] MEDS ORDERED: MIDAZOLAM HCL 1 MG/ML 2ML VIAL ONE ×2 (15:22→16:10)
[2017-02-21] MEDS ORDERED: FENTANYL CITRATE INJ 50 MCG/1 ML 2 ML VIAL ONE (15:23)
[2017-02-21] MEDS ORDERED: HEPARIN SOD (PORCINE) 1000 UNIT/ML 10 ML VIAL ONE (15:23)
[2017-02-21] MEDS ORDERED: NiCARDipine HCL INJ 2.5 MG/ML 10 ML AMP ONE (15:23)
[2017-02-21] MEDS ORDERED: NITROGLYCERIN/D5W 100MCG/ML 20ML SYR ONE (15:23)
--- NOTE | 2017-02-21 16:18 | Cardiac Catheterization ---
Procedure Note Procedure Date Feb 21, 2017. Pre-Procedure Diagnosis Angina, Positive Stress Test AUC Score 9 Post-Procedure Diagnosis Severe CAD Procedure(s) Performed Coronary Angiography, Left Heart Cath Storage Brine Worker Dr. Michel Residential Real Estate Agent(s) Mo Arvizu Estimated Blood Loss < 25 ml Medication(s) Fentanyl, Heparin, Nicardipine, Versed, Lidocaine 1% Summary of Findings Coronary angiography: 1. Left main coronary artery: The LMCA is short in length. No significant CAD noted. Mild calcifications noted under fluoroscopy. 2. Left anterior descending: The LAD is a large caliber vessel that wraps around the apex. Proximal LAD 30%. The LAD gives rise to a large first septal candy feeder and 2 very small caliber diagonal vessels. 3. Circumflex: The circumflex is large and dominant. Distal circumflex 20-30% . Very high takeoff of a large caliber OM1 vessel. Proximal OM1 with 90-95% stenosis and RITESH [address] branch without significant CAD. Medium caliber PDA without significant CAD. 4. Right coronary artery: Non dominant vessel. Medium caliber. Proximal luminal irregularities of approximately 10%. Left heart catheterization: 1. Left ventriculography was not performed. ECHO was performed earlier today. 2. No significant aortic stenosis. 3. Normal LVEDP; 7mmHg. Sedation start time: 3:26 p.m. Sedation end time: 3:45 p.m. Procedural details: 1. Diagnostic coronary angiography was performed via the right radial artery with 6 Martiniquais diagnostic catheters (JL 3.5 and JR4). No known complications. Impression: 1. Severe CAD involving the proximal OM1. 2. Mild nonobstructive CAD involving the proximal LAD and distal circumflex. 3. Dominant circumflex. 4. No aortic stenosis. 5. Normal LVEDP. Plan: 1. Interventional Cardiology, Dr. Galindo, has reviewed images and plans to perform PCI of OM1. 2. Recommended that he stop smoking. 3. Other risk factor modification. Hemodynamics Rest Ao: 122/66 Final Ao: 133/80 LV: 101/4/7 Recommendations PCI without planned CABG Specimens None Radiation Exposure (mGy) 2100 mGy (including much of the interventional portion of the procedure). Contrast (mls) 65 ml Procedural Complication(s) None Disposition Remains in cheesemaking laborer for PCI ACC Data Cardiac Status Clinical evaluation leading to the procedure CAD Presntation: Stable angina, Positive Stress Test Anginal Classification: CCS III Heart Failure: No Cardiogenic Shock w/in 24Hrs: No Cardiac Arrest w/in 24Hrs: No Imaging studies past 6 months: No Stress studies past 6 months: Yes Standard Exercise Stress Test: Yes - Positive, Risk/Extent of Ischemia ( Intermediate) Stress Echocardiogram: Yes - Positive, Risk/Extent of Ischemia (Low) Stress Testing w/SPECT MPI: No Cardiac CTA: No Coronary Anatomy Dominant: Left Left Main (% Stenosis): Normal LAD (% Stenosis): Proximal (30%) D1 (% Stenosis): Normal D2 (% Stenosis): Normal Circumflex (% Stenosis): Distal (30%) OM1 (% Stenosis): Proximal (95%) L PL1 (% Stenosis): Normal L PDA (% Stenosis): Normal RCA (% Stenosis): Proximal (10%) Left Ventricular Angiography EF (%): n/a Diagnostic Physician's Name: Asher Michel MD Status: Elective Closure Device Percutaneous Entry Location: Radial Closure Device: Radial Band Recommendations: PCI without planned CABG
[2017-02-21] MEDS ORDERED: CLOPIDOGREL BISULFATE 300 MG TAB PO ONE (16:30)
--- NOTE | 2017-02-21 16:31 | Post Sedation Assessment ---
Post Sedation Assessment General Date of Sedation Feb 21, 2017. Vital Signs: Vital Signs Past 12 Hours Date Time Temp Pulse Resp B/P (MAP) Pulse Ox O2 Delivery O2 Flow Rate FiO2 02/21/17 12:00 95 Room Air 02/21/17 08:00 95 Room Air 02/21/17 07:29 36.7 67 20 118/76 (90) 96 Room Air Post Procedure Recovery Score Activity: (2) Moves 4 extremities * Respiration: (2) Deep breath/cough Circulation: (2) +/-20% PreAnes Value Consciousness: (2) Fully Awake Oxygen Saturation: (2) > 92% On Room Air Post Anesthesia Score: 10 Discharge Sedation Level of Care: Fast Track Phase II Post Sedation Plan On clinical assessment, the patient appears to have tolerated the sedation without complications. Patient is recovering as anticipated. Patient will continue to be monitored by nursing and may be discharged when sedation discharge criteria are met per below protocol. Upon Completions of procedure and additional 15 minutes continue every 5 minute vital signs and the P.A.R. score; then discharge to a Phase I or Fast Track to Phase II per the following guidelines: * Discharge Patient to appropriate Phase II area if PAR is 8 or greater or return to pre- procedure baseline. The post - procedure orders will be as directed. * If PAR score is less than 8 or not return to pre-procedure baseline then patient will follow Phase I monitoring till PAR is reached for Phase II. The Phase I may be done in procedure room or may call to secure a Phase I area. * If naloxone or flumazenil are used for reversal, hold in Phase I for an additional 60 -120 minutes before discharge to Phase II. Please call the Sedation Physician to re-evaluate and complete post-note for discharge to Phase II area. Do NOT discharge from procedure sedation or Phase 1 until post- sedation evaluation note is complete by procedure /sedation MD Sedation Discharge Instructions to be given to the patient at discharge to home.
--- NOTE | 2017-02-21 16:37 | Cardiac Catheterization ---
Procedure Note Procedure Date Feb 21, 2017. Pre-Procedure Diagnosis Positive Stress Test AUC Score 8 Post-Procedure Diagnosis Severe CAD, Successful PCI Procedure(s) Performed Drug Eluting Stent Flight Crew Scheduler Mateo Traffic Control Flagger(s) Luh Estimated Blood Loss 15 Medication(s) Fentanyl, Heparin, Nitroglycerin, Versed, Lidocaine 1% Summary of Findings Indication: Angina/Positive stress test Access: 6Fr slender right radial artery Catheters: JL3.5 guide Findings: For full details of patient's coronary angiography please cath report dictated by Dr. Michel. Briefly patient found to have a severe 95% focal stenosis in the proximal aspect of a large high OM1. -- PCI -- Antithrombotic therapy: Heparin, Clopidogrel Procedure: LM cannulated with JL3.5 guide BMW wire passed across lesion into distal vessel OM1 lesion predilated with 2.5 compliant balloon Dilated lesion stented with 2.75 x 18 Xience ALESHIA Stent post-dilated with 3.0 noncompliant balloon IC vasodilators administered for spasm Post procedure RITESH 3 flow, stent well expanded with minimal residual stenosis and no apparent cardiac complications. Arterial Closure: TR Band Summary: 1. Successful PCI of proximal OM1 with single ALESHIA (2.75 x 18 Xience, post- dilated with 3.0 NC). Recommendations: To PCU for continued monitoring Loaded with Clopidogrel 600mg in circus laborer Continue dual-antiplatelet therapy for 1 year Continue statin, and ASCVD risk factor modification Consult cardiac Rehab Hemodynamics Rest Ao: 133/59/89 Final Ao: 148/57/89 LV: 175/17 Recommendations PCI without planned CABG Specimens None Radiation Exposure (mGy) 1007 Contrast (mls) 65 (total 215) Fluids (cc crystalloids) 40 Drains None Anesthesia Moderate Procedural Complication(s) None Disposition PCU ACC Data Cardiac Status Clinical evaluation leading to the procedure CAD Presntation: Positive Stress Test Anginal Classification: CCS III Heart Failure: No, NYHA Class: CCS I Cardiogenic Shock w/in 24Hrs: No Cardiac Arrest w/in 24Hrs: No Imaging studies past 6 months: Yes Stress studies past 6 months: Yes Stress Echocardiogram: Yes - Positive, Risk/Extent of Ischemia (Intermediate) Closure Device Percutaneous Entry Location: Radial Closure Device: Radial Band Recommendations: PCI without planned CABG PCI Indication: + Stress Test Lesion Segment Name: Proximal OM1 Culprit Artery: Yes Stenosis Prior to Rx (%): 95 Chronic Total Occlusion: No IVUS: No FFR: No Pre-Procedure RITESH Flow: 3 Previously Treated Lesion: No Lesion Complexity: Non-High/Non-C Lesion Length (mm): 12 Thrombus Present: No Bifurcation Lesion: No Guidewire Across Lesion: Yes Guidewire: Stenosis Post-Procedure (%): 0 Post-Procedure RITESH Flow: 3 Device(s) Deployed: Yes Intraprocedure Events Significant Dissection: No Perforation: No
[2017-02-21] MEDS ORDERED: ACETAMINOPHEN 325 MG TAB PO PRN ×2 (16:45)
[2017-02-21] MEDS ORDERED: SODIUM CHLORIDE 0.9% 1000ML 1,000 ML IV SCH (16:45)
--- NOTE | 2017-02-21 23:20 | Family Medicine Progress Note ---
Progress Note Date of Service Feb 21, 2017. Subjective Pt evaluation today including: conversation w/ patient, physical exam, chart review, lab review, review of studies, review of inpatient medication list Pain: Patient reports pain in his right foot PO Intake: NPO Voiding: no voiding problems Patient reports no chest pain or discomfort at bedside; he does report pain and swelling of right foot and is having difficulty ambulating Respiratory: + dyspnea on exertion Cardiovascular: + chest pain (on exertion) Musculoskeletal: + see HPI, + joint pain, + swelling All Other Systems: Reviewed and Negative Medications Current Inpatient Medications Medications (Trade) Dose Ordered Sig/Daysi Route Start Time Stop Time Status Last Admin Dose Admin Ioversol (Optiray 320) 111 ml UD PRN IV 02/20/17 21:45 02/24/17 21:44 Acetaminophen (Tylenol Tab) 650 mg Q4H PRN PO 02/21/17 00:00 03/23/17 00:00 Al Hydrox/Mg Hydrox/Simethicone (Maalox Max Susp) 15 ml Q4H PRN PO 02/21/17 00:00 03/23/17 00:00 Magnesium Hydroxide (Milk Of Magnesia Susp) 30 ml Q12H PRN PO 02/21/17 00:00 03/23/17 00:00 Ondansetron HCl (Zofran Inj) 4 mg Q6H PRN IV 02/21/17 00:00 03/23/17 00:00 Nitroglycerin (Nitrostat Tab) 0.4 mg UD PRN SL 02/21/17 00:00 03/23/17 00:00 Polyethylene (Miralax Powder Packet) 17 gm DAILY PRN PO 02/21/17 00:00 03/23/17 00:00 Diclofenac Sodium (Voltaren 1% Top Gel) 1 appln QID EXT 02/21/17 09:00 03/23/17 08:59 02/21/17 21:04 1 APPLN Sodium Chloride 1,000 ml @ 100 mls/hr Q10H IV 02/21/17 16:45 02/22/17 00:14 02/21/17 17:04 100 MLS/HR Clopidogrel Bisulfate (plAVix TAB) 75 mg QAM PO 02/22/17 09:00 03/24/17 08:59 Aspirin (Ecotrin Tab) 81 mg QAM PO 02/22/17 09:00 03/24/17 08:59 Atorvastatin Calcium (Lipitor Tab) 80 mg QAM PO 02/22/17 09:00 03/24/17 08:59 Objective Vital Signs Date Time Temp Pulse Resp B/P (MAP) Pulse Ox O2 Delivery O2 Flow Rate FiO2 02/21/17 20:08 36.7 80 18 130/79 (96) 96 Room Air 02/21/17 20:00 Room Air 02/21/17 19:24 74 16 120/81 (94) 95 Room Air 02/21/17 18:51 80 16 112/60 (77) 95 Room Air 02/21/17 18:01 84 18 125/89 (101) 94 Room Air 02/21/17 17:30 89 16 128/82 (97) 96 Room Air 02/21/17 17:15 76 16 132/91 (105) 95 Room Air 02/21/17 17:09 70 16 108/82 (91) 96 Room Air 02/21/17 17:00 Room Air 02/21/17 17:00 76 16 108/82 (91) 97 Room Air 02/21/17 16:45 36.7 68 16 134/79 (97) 97 Room Air 02/21/17 16:35 83 16 130/80 (97) 98 Room Air 02/21/17 16:25 83 16 138/80 (99) 98 Room Air 02/21/17 12:00 95 Room Air 02/21/17 08:00 95 Room Air 02/21/17 07:29 36.7 67 20 118/76 (90) 96 Room Air 02/21/17 04:00 94 Room Air 02/21/17 03:22 36.4 63 19 107/67 (80) 94 Room Air 02/21/17 01:33 36.5 63 18 143/90 95 Room Air 02/21/17 00:21 69 19 148/85 97 02/20/17 23:52 69 19 148/85 97 Room Air Physical Exam General Appearance: WD/WN, no apparent distress Eyes: normal inspection, PERRL, EOMI ENT: hearing grossly normal, pharynx normal Neck: supple, no adenopathy, no carotid bruits, trachea midline Respiratory/Chest: chest non-tender, lungs clear, normal breath sounds, no respiratory distress, no accessory muscle use Cardiovascular: regular rate, rhythm, no edema, no gallop, no JVD Abdomen: normal bowel sounds, non tender, soft Extremities: no calf tenderness, + pertinent finding (Right foot mildly swollen , with tenderness to palpation of superior structures on dorsum of foot, mostly lateral to but alongside extensor hallicus longus) Neurologic/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 tested, no motor/sensory deficits, alert, normal mood/affect, oriented x 3 Skin: normal color, warm/dry, no rash Laboratory Results Last Resulted 02/20/17 20:23 Red Blood Count 4.48, Mean Corpuscular Volume 91.7, Mean Corpuscular Hemoglobin 31.3, Mean Corpuscular Hemoglobin Concent 34.1, Mean Platelet Volume 9.7, Neutrophils (%) (Auto) 55.4, Lymphocytes (%) (Auto) 31.4, Monocytes (%) (Auto) 6.9, Eosinophils (%) (Auto) 4.8, Basophils (%) (Auto) 1.0, Neutrophils # (Auto) 4.39, Lymphocytes # (Auto) 2.49, Monocytes # (Auto) 0.55, Eosinophils # (Auto) 0.38, Basophils # (Auto) 0.08 Last Resulted 02/20/17 20:23 Past 24 Hours Test 02/21/17 06:18 02/21/17 11:44 02/21/17 18:12 02/21/17 23:26 Range/Units Troponin I < 0.015 < 0.015 0.015 0-0.045 ng/ml Assessment and Plan 56 y/o M who presents with anginal chest pain for 6 weeks, shortness of breath, and right foot pain x 3 weeks Chest pain: CTA negative for PE Troponins serially negative Stress Echo: patient was symptomatic with EKG changes at 4 minutes, taken to laboratory animal care veterinarian and subsequent stent placement Loaded with 600mg clopidogrel in laboratory animal care veterinarian Recommend dual antiplatelet x 1 year (ASA 81, clopidogrel 75) Continue with statin (atorvastatin 80mg OD) Cardiac rehab consult placed Dyslipidemia: TG 175, Tchol 216, LDL 141, HDL 50--continue statin Right foot pain: negative for DVT and normal uric acid Xray: Mild cortical irregularity of the lateral aspect of the right fifth metatarsal head. This finding is age indeterminate although probably chronic. Patient reported pain in this area but moreso on medial aspect of dorsal R foot Recommended voltaren gel, as d/t recent stent placement NSAIDS are not option Smoking Smoking cessation counselling necessary DVT proph: SCD Code: Full Dispo: tele Resident Physician Supervision Note: I interviewed and examined the patient. Discussed with Dr. Figueroa and agree with findings and plan as documented in the note. Any exceptions or clarifications are listed here: None Documented By: Mo Adorno angina resolved. for [facility] later today. vitlas noted nad breathing unlabored no pallor or icterus unstable angina - cath today, risk factor reduction hyperlipidemia - statin tobacco abuse - smoke cessation critical Resident Tracking Resident Involvement: Resident Care Provided Care Provided: Adult Hospital Medicine
[2017-02-22 04:00] VITALS: O2SAT 95
[2017-02-22 05:07] VITALS: BP 117/75; PULSE 65; TEMP 37; O2SAT 95
[2017-02-22 07:19] LABS: BASO % 0.5 %; BASO ABS # 0.05 K/uL (0-0.2); COMPLETE YES; HEMATOCRIT 39.2 % (42-52); IG% 0.4 %; LYMPH % 21.4 %; LYMPH ABS # 2.03 K/uL (1.2-3.4); MEAN CELL VOLUME 89.9 fL (80-100); MEAN CORPUSCULAR HEMOGLOBIN 30.7 pg (25-34); MEAN CORPUSCULAR HGB CONC 34.2 g/dl (32-36); MEAN PLATELET VOLUME 9.6 fL (7.4-10.4); MONO % 6.4 %; NEUT % 69.3 %; PLATELET COUNT 209 K/uL (130-400); RED BLOOD COUNT 4.36 M/uL (4.7-6.1); WHITE BLOOD COUNT 9.49 K/uL (4.8-10.8)
[2017-02-22 07:26] VITALS: BP 106/74; PULSE 69; TEMP 36.7; O2SAT 92
[2017-02-22 07:44] LABS: BUN/CREATININE RATIO 16.9 (10-20); CREATININE 0.94 mg/dl (0.60-1.40); POTASSIUM 3.7 mmol/L (3.5-5.1)
[2017-02-22 07:45] LABS: CALCIUM 8.8 mg/dl (8.5-10.1)
[2017-02-22] MEDS: DICLOFENAC SOD 1% GEL 100 GM TUBE EXT SCH (07:46)
[2017-02-22 08:00] VITALS: O2SAT 95
[2017-02-22] MEDS ORDERED: CLOPIDOGREL BISULFATE 75 MG TAB PO SCH (09:00)
[2017-02-22] MEDS ORDERED: ATORVASTATIN 40 MG TAB PO SCH (09:00)
[2017-02-22] MEDS ORDERED: ASPIRIN 81 MG ECTAB PO SCH (09:00)
--- NOTE | 2017-02-22 09:44 | CARDIOLOGY PROGRESS NOTE ---
DATE: 02/22/2017 SUBJECTIVE: Mr. Sauer is resting comfortably in bed without complaints of chest pain or dyspnea. Results of his cardiac catheterization and PCI discussed in detail. He is anxious for hospital discharge. Plans tobacco cessation. OBJECTIVE: VITAL SIGNS: Blood pressure 106/74 with a regular pulse of 70. Respiratory rate is 20. The patient is afebrile at 36.7 degrees Celsius. Saturations 95% on room air. NECK: Supple with full carotid upstrokes. No carotid bruits. Jugular venous pressure is flat at 90 degrees. There is no thyromegaly. CARDIOVASCULAR: Reveals a regular rhythm with normal S1 and S2. Heart sounds are distant. No obvious murmurs. LUNGS: Clear without rales, rhonchi, or wheezes. ABDOMEN: Soft, nontender without bruits. EXTREMITIES: Reveal intact radial artery pulses bilaterally. There is no peripheral edema. Right radial pulse is intact. DATA: CBC notes hemoglobin of 13.4, hematocrit 39.2, white count 9.5, platelet count 209,000. Electrolytes note a sodium of 136, potassium 3.7, chloride 106, bicarb 23, BUN 16, creatinine 0.9, glucose 96. Post-procedure troponin was mildly elevated at 0.374. pvc monitor is benign. IMPRESSION AND PLAN: 1. Coronary artery disease -- patient had a 2.75 x 18 Xience drug-eluting stent placed in the proximal first obtuse marginal branch. He was found to have a 30% proximal LAD, 30% distal LCX, and luminal irregularities in the nondominant right coronary artery. 2. Hypercholesterolemia -- tolerating atorvastatin without difficulty. 3. Tobacco abuse -- I have discussed the importance of tobacco cessation.
--- NOTE | 2017-02-22 10:23 | Consultant Recommendations ---
Actor Understudy Recommendations Date of Service Feb 22, 2017. Actor Understudy Recommendations ACTIVITY RECOMMENDATIONS: Excess manipulation of the wrist should be avoided for the next 24-48 hours. * No lifting over 2 pounds (approximately a 1/2 gallon of milk) with the utilized arm for 24 hours. * No strenuous activity such as bowling or tennis for 3 days. * Keep the site of the procedure covered with a bandage for 24 hours. *You may shower the day after the procedure. Do not take a tub bath or submerge the puncture site in water for the next 3 days. *Do not operate any motorized equipment for 3 days. SPECIAL CARE INSTRUCTIONS: The site may be slightly bruised and sore following your procedure. Should any of the following occur, contact the Dr. who performed your procedure. 1. Redness/inflammation, swelling, chills, or fever, or colored drainage at procedure site within 3-7 days after your procedure. 2. Coldness, discoloration, ongoing numbness, severe pain, or swelling. Expect mild tingling of hand and tenderness at the puncture site for up to three days. If this persists beyond three days, or other symptoms develop, notify the Dr. who performed your procedure. BLEEDING: If the procedure site on your wrist begins to bleed, do not panic 1. Place 1 or 2 fingers firmly just slightly above the insertion site to stop the bleeding. You may be able to feel your pulse as you hold pressure. 2. Lift your finger after 5 minutes to see if the bleeding has stopped. 3. Once the bleeding has stopped, gently wipe the wrist area clean with a bandage. * If the bleeding from your wrist does not stop after 10 minutes, or if there is a large amount of bleeding or spurting, call 911 (do not drive yourself to the hospital). SKIN IRRITATION: * You may experience some redness and/or swelling in the area where radiation was administered. If any skin irritation occurs, please contact your family physician. FOLLOW UP VISIT: Keep any scheduled doctor appointments.
[2017-02-22] MEDS ORDERED: PLV75 PO (10:32)
[2017-02-22] MEDS ORDERED: NTRSLP4 SL (10:32)
[2017-02-22] MEDS ORDERED: VLTG EXT (10:32)
[2017-02-22] MEDS ORDERED: ATOR-26 PO (10:32)
--- NOTE | 2017-02-22 11:02 | Discharge Instructions ---
Discharge Instructions Date of Service Feb 22, 2017. Admission Reason for Admission: Left Sided Chest Pain Discharge Discharge Diagnosis / Problem: coronary artery disease Discharge Goals Goal(s): Improve function, Improve disease control, Learn about illness, Therapeutic intervention, Prevent Disease Progression Activity Recommendations Activity Limitations: per Instructions/Follow-up section . Instructions / Follow-Up Instructions / Follow-Up During your stay you were evaluated for chest discomfort. On testing done by cardiology, one of the vessels in your heart was blocked up to 90% and a stent was placed to open this vessel. Because of the diseased artery in your heart and your new stent that was placed , you will be placed on some new or changed medications Take plavix 75mg once daily and one baby aspirin (81mg) daily. The plavix prescription has been sent to your pharmacy. Baby aspirin can be found over the counter Take lipitor 80 mg daily. This has been sent to your pharmacy. This replaces your statin you had been on prior to arriving to the hospital. A nitro tablet that is used under the tongue has also been prescribed. Take this as needed. Your primary care doctor will be monitoring your blood pressure and you may have another medication added in the future As we discussed, you it is very important to stop smoking. You can discuss options to help you quit smoking with your PCP. We recommend you follow a Mediterranean diet, which includes drinking lots of water, filling your plate with fruits, vegetables, whole grains, and nuts. Eat fish and seafood often, two times per week or more. Moderate amounts of cheese, yogurt, eggs, and poultry, with red meats and sweets less often. Exercise in another important aspect for your future health. Try to get 30 minutes of exercise most days of the week. For your foot pain, apply the voltaren gel as needed. Remember, because of your recent procedure, you should not use ibuprofen products, including advil and motrin, for pain relief. You may use tylenol/ acetaminophen. You already have a followup appointment with your primary care doctor next week. You will also have a follow up appointment with the cardiologists in a few weeks. They will contact you with this appointment information. Current Hospital Diet Patient's current hospital diet: AHA Diet (Heart Healthy) Discharge Diet Recommended Diet: AHA Diet (Heart Healthy) Pending Studies Studies pending at discharge: no Laboratory Results Lipid Panel Test 02/21/17 06:18 Range/Units Triglycerides Level 175 H 0-150 mg/dl Cholesterol Level 216 H 0-200 mg/dl HDL Cholesterol 40 mg/dl Cholesterol/HDL Ratio 5.4 LDL Cholesterol, Calculated 141 mg/dl Medical Emergencies . Who to Call and When: Medical Emergencies: If at any time you feel your situation is an emergency, please call 911 immediately. . Non-Emergent Contact Non-Emergency issues call your: Primary Care Provider . . "Provider Documentation" section prepared by Mirella Figueroa. . Dealer Development Manager Recommendations Dealer Development Manager Recommendations: ACTIVITY RECOMMENDATIONS: Excess manipulation of the wrist should be avoided for the next 24-48 hours. * No lifting over 2 pounds (approximately a 1/2 gallon of milk) with the utilized arm for 24 hours. * No strenuous activity such as bowling or tennis for 3 days. * Keep the site of the procedure covered with a bandage for 24 hours. *You may shower the day after the procedure. Do not take a tub bath or submerge the puncture site in water for the next 3 days. *Do not operate any motorized equipment for 3 days. SPECIAL CARE INSTRUCTIONS: The site may be slightly bruised and sore following your procedure. Should any of the following occur, contact the Dr. who performed your procedure. 1. Redness/inflammation, swelling, chills, or fever, or colored drainage at procedure site within 3-7 days after your procedure. 2. Coldness, discoloration, ongoing numbness, severe pain, or swelling. Expect mild tingling of hand and tenderness at the puncture site for up to three days. If this persists beyond three days, or other symptoms develop, notify the Dr. who performed your procedure. BLEEDING: If the procedure site on your wrist begins to bleed, do not panic 1. Place 1 or 2 fingers firmly just slightly above the insertion site to stop the bleeding. You may be able to feel your pulse as you hold pressure. 2. Lift your finger after 5 minutes to see if the bleeding has stopped. 3. Once the bleeding has stopped, gently wipe the wrist area clean with a bandage. * If the bleeding from your wrist does not stop after 10 minutes, or if there is a large amount of bleeding or spurting, call 911 (do not drive yourself to the hospital). SKIN IRRITATION: * You may experience some redness and/or swelling in the area where radiation was administered. If any skin irritation occurs, please contact your family physician. FOLLOW UP VISIT: Keep any scheduled doctor appointments. VTE Core Measure Inpt VTE Proph given/why not?: SCD's
[2017-02-22 11:03] VITALS: BP 117/76; PULSE 68; TEMP 36.5; O2SAT 94
[2017-02-22 11:26] VITALS: BP 106/74; PULSE 69; TEMP 36.7; O2SAT 95
--- NOTE | 2017-02-22 23:03 | Discharge Summary ---
Discharge Summary Date of Service Feb 22, 2017. Discharge Summary Admission Date: Feb 21, 2017 at 00:00 Discharge Date: Feb 22, 2017 Discharge Disposition: Home Principal Diagnosis: Coronary artery disease Problems/Secondary Diagnoses: Hypercholesterolemia, Tobacco abuse, right foot pain Immunizations: Have You Had Influenza Vaccine: Unknown History of Tetanus Vaccine?: Unknown History of Pneumococcal: Unknown History of Hepatitis B Vaccine: Unknown Medication Reconciliation New Medications: Atorvastatin (Lipitor) 80 Mg Tab 80 MG PO DAILY for 30 Days, #30 TAB Clopidogrel Bisulfate (Clopidogrel) 75 Mg Tab 75 MG PO QAM for 30 Days, #30 TAB Diclofenac Sod (Voltaren) 100 Appln/100 Gm Gel 1 APPLN EXT QID for 30 Days, #100 GM Nitroglycerin (Nitrostat) 0.4 Mg/1 Tab Subl 0.4 MG SL UD PRN for Chest Pain for 30 Days, #30 TAB Continued Medications: Docusate Sodium (Docusate Sodium) 100 Mg Cap 100 MG PO BID, CAP Omeprazole (Prilosec) 40 Mg Cap 40 MG PO DAILY, CAP Discontinued Medications: Ibuprofen (Advil) 200 Mg Tab 400-600 MG PO Q6H PRN for Pain, TAB Discharge Exam ROS Respiratory: + dyspnea on exertion Cardiovascular: + chest pain (on exertion) Musculoskeletal: + see HPI, + joint pain, + swelling All Other Systems: Reviewed and Negative PE General Appearance: WD/WN, no apparent distress Eyes: normal inspection, PERRL, EOMI ENT: hearing grossly normal, pharynx normal Neck: supple, no adenopathy, no carotid bruits, trachea midline Respiratory/Chest: chest non-tender, lungs clear, normal breath sounds, no respiratory distress, no accessory muscle use Cardiovascular: regular rate, rhythm, no edema, no gallop, no JVD Abdomen: normal bowel sounds, non tender, soft Extremities: no calf tenderness, + pertinent finding (Right foot mildly swollen , with tenderness to palpation of superior structures on dorsum of foot, mostly lateral alongside extensor hallicus longus) Neurologic/Psychiatric: 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 The patient stated that the episodes sometimes go away with acid reflux pills or a glass of milk, but recently that hadn't been cutting it. He stated that the pain is a burning sensation that comes on when he is exerting himself. He reported that when these episodes come on he becomes nauseated. He notes a family history of heart disease, but denies any cardiac history himself. The patient also noted that he is a smoker. He also complains of right foot pain, right calf pain, and his leg sometimes feeling numb. He stated that he hit his foot on a dresser two days ago. Patient's serial cardiac enzymes were negative, and exercise stress echo was performed. Patient was symptomatic with EKG changes at 4 minutes on treadmill, was subsequently taken to lab asst and progressed to stent placement for 95% blockage of OM1 Chest pain: CTA negative for PE Troponins serially negative Stress Echo: patient was symptomatic with EKG changes at 4 minutes, taken to lab asst and subsequent stent placement Recommend dual antiplatelet x 1 year (ASA 81, clopidogrel 75) Continue with high-dose statin (atorvastatin 80mg OD) Nitro tabs given for prn use Cardiac rehab recommended Dyslipidemia: TG 175, Tchol 216, LDL 141, HDL 50--continue statin Discussed lifestyle changes including smoking cessation, Mediterranean diet, and exercise ACSVD 10 year risk is 11.4%; if risk factors are optimized risk decreases to 4.8 % Monitor patient's blood pressure; if pressure can support it, he would also benefit from metoprolol/lisinopril Right foot pain: negative for DVT and normal uric acid Xray: Mild cortical irregularity of the lateral aspect of the right fifth metatarsal head. This finding is age indeterminate although probably chronic. Patient reported pain in this area but moreso on medial aspect of dorsal R foot Recommended voltaren gel, as d/t recent stent placement NSAIDS are not option. Patient understands and has found some relief with gel in house. Resident Physician Supervision Note: I interviewed and examined the patient. Discussed with Dr. Figueroa and agree with findings and plan as documented in the note. Any exceptions or clarifications are listed here: None Documented By: Mo Adorno feeling ok post stent dr figueroa discussed meds and lifestyle extensively with pt - i reiterated silva points of discussion. pt expressed understanding no new issues. vitals noted nad breathing unlabored no pallor or icterus unstable angina/CAD caused by tobacco abuse/hyperlipid -stable for home -lifestyle changes including smoke cessation/eating/exercise -statin -asa / plavix -would like beta jaimee and/or ACEi but does not appear BP will support it - ongoing office follow up -prn nitro Total Time Spent: Greater than 30 minutes This includes examination of the patient, discharge planning, medication reconciliation, and communication with other providers. Discharge Instructions Please refer to the electronic Patient Visit Report (Discharge Instructions) for additional information. Follow-Up February [address] Moore Follow up in 2-3 weeks with cardiology Additional Copies To Tone Moore M.D. Resident Tracking Resident Involvement: Resident Care Provided Care Provided: Adult Hospital Medicine
== END 2017-02-22 11:55 | disposition home or self-care (01) | DRG 247 ==
LOC: C.EDB 18:44 → C.2T 02-21 → ENRESERV 02-21 00:14
PROVIDERS: ADMIT Hospitalist; ATTEND Family Medicine
PROC: 4A023N7 Measurement of Cardiac Sampling and Pressure, Left Heart, Percutaneous Approach (ICD-10-PCS; 2017-02-21)
PROC: B2111ZZ Fluoroscopy of Multiple Coronary Arteries using Low Osmolar Contrast (ICD-10-PCS; 2017-02-21)
PROC: 027034Z Dilation of Coronary Artery, One Artery with Drug-eluting Intraluminal Device, Percutaneous Approach (ICD-10-PCS; principal; 2017-02-21 13:30)
PROC: 3E053PZ Introduction of Platelet Inhibitor into Peripheral Artery, Percutaneous Approach (ICD-10-PCS; principal; 2017-02-21 13:30)
DX: I25.110 Atherosclerotic heart disease of native coronary artery with unstable angina pectoris (principal); J44.9 Chronic obstructive pulmonary disease, unspecified; N40.0 Benign prostatic hyperplasia without lower urinary tract symptoms; F17.200 Nicotine dependence, unspecified, uncomplicated; M79.671 Pain in right foot; K21.9 Gastro-esophageal reflux disease without esophagitis; Z82.41 Family history of sudden cardiac death; Z82.49 Family history of ischemic heart disease and other diseases of the circulatory system; E78.5 Hyperlipidemia, unspecified